=== PATIENT | male | born 1960 ===

== ENCOUNTER → 2021-12-14 | Outpatient (CLI) | payer MEDICARE, OTHER, MEDICAID ==
--- NOTE | 2021-12-14 17:39 | KCIC ---
MRI of the cervical spine without contrast 12/14/2021 CLINICAL HISTORY: Neck pain which extends between the scapula. TECHNIQUE: Unenhanced T1-weighted, T2-weighted and inversion recovery sagittal and gradient echo and T2-weighted axial images of the cervical spine were obtained. FINDINGS: Comparison is made to radiographs of the cervical spine dated 12/08/2021. Very mild lateral curvature of the cervical spine is seen convex to the right. There is reversal of t he normal cervical lordosis. Degenerative signal changes are seen involving all of the disks of the c ervical spine. Degenerative signal changes are seen within the marrow surrounding these discs. At the C2-3 and C3-4 disc spaces there are minimal to mild generalized disc bulges. Degenerative hernandez ges are seen involving the uncovertebral and facet joints bilaterally. These findings do not result i n significant central spinal canal or neural foraminal stenosis. At the C4-5 disc space there is a mild generalized disc bulge. Superimposed on this disc bulge is a l eft paracentral focal disc protrusion. This measures 2 mm in AP diameter. Degenerative changes are se en involving the uncovertebral and facet joints, right greater than left. These findings when combine d efface the anterior CSF, left greater than right resulting in mild left-sided central spinal canal stenosis. The disc protrusion mildly deforms the left anterior surface of the cervical spinal cord. N o neural foraminal stenosis is seen. At the C5-6 disc space there is a mild to moderate generalized disc bulge. This is eccentric to the l eft. Degenerative changes are seen involving the uncovertebral and facet joints, left greater than ri ght. These findings when combined do not result in significant central spinal canal stenosis. Moderat e left neural foraminal stenosis is seen. The right neural foramen is patent. At the C6-7 disc space there is a moderate generalized disc bulge. Superimposed on this disc bulge is a central/left paracentral focal disc osteophyte complex. This measures 4 mm in AP diameter. Degener ative changes are seen involving the uncovertebral and facet joints, left greater than right. These f indings efface the anterior CSF resulting in mild left greater than right central spinal canal stenos is without significant cord impingement. Mild to moderate left neural foraminal stenosis is seen. The right neural foramen is patent. At the C7-T1 disc space there is a mild generalized disc bulge. Superimposed on this disc bulge is a focal central disc protrusion. This measures 3 mm in AP diameter. Degenerative changes are seen invol ving the facet joints bilaterally. These findings when combined do not result in significant central spinal canal stenosis. Moderate bilateral neural foraminal stenosis is seen. IMPRESSION: Degenerative changes are seen throughout the cervical spine. These findings result in mil d left-sided central spinal canal stenosis at C4-5 and mild left greater than right central spinal ca nal stenosis at C6-7 without significant cord impingement. Moderate left neural foraminal stenosis is seen at C5-6. Mild to moderate left neural foraminal stenosis is seen at C6-7. Moderate bilateral ne ural foraminal stenosis is seen at C7-T1. Electronically signed by: Tim Ludwig MD (12/14/2021 5:37 PM) [id number]
== END ==
LOC: KCIC MRI 13:07
PROVIDERS: ATTEND Physician Assistant
DX: M47.812 Spondylosis without myelopathy or radiculopathy, cervical region (principal); M48.02 Spinal stenosis, cervical region; M50.31 Other cervical disc degeneration, high cervical region
CPT/HCPCS: 72141